=== PATIENT | female | born 1970 | race Caucasian/White ===

== ENCOUNTER → 2017-01-09 | Outpatient (CLI) | payer BC ==
[~2017-01-09] MED LIST: DULO30CA2 PO; ETOD500T PO; GADOBUTROL 7.5 MMOL/7.5 ML VIAL IV ONE; HYDR200T5 PO
--- NOTE | 2017-01-09 15:42 | KCIC ---
PROCEDURE MRI of the brain without and with contrast 01/09/2017 HISTORY Facial numbness with left vision loss. Bello's palsy for 3 weeks. TECHNIQUE Unenhanced T1 weighted sagittal and axial and FLAIR, gradient echo, T2 weighted and diffusion weighted axial images of the brain were obtained. After the intravenous administration of 7 cc of Gadavist, enhanced T1 weighted axial and coronal images of the brain were obtained. FINDINGS The ventricles and sulci are within normal limits in size and configuration. No area of significant abnormal signal intensity is seen involving the brain parenchyma. No extra-axial fluid collection is seen. There is no MRI evidence of acute ischemia/infarction. No abnormal area of contrast enhancement is noted. The orbits and IAC's are within normal limits. Mild mucosal thickening is seen scattered throughout the paranasal sinuses. Normal flow voids are seen within the major vascular structures surrounding the brain parenchyma. IMPRESSION Essentially negative study. Electronically signed by: Henry Rodrigez MD (January 09, 2017 15:40:05)
== END | disposition home or self-care (01) ==
LOC: KCIC MRI 13:46
PROVIDERS: ATTEND Physician Assistant
DX: G51.0 Bell's palsy (principal)
CPT/HCPCS: 70553; A9585